=== PATIENT | female | born 1950 | race Two or more races ===

== ENCOUNTER → 2021-11-30 | Outpatient (REF) | payer MEDICARE | LOC: M SFHCDERM 17:32 | PROVIDERS: ATTEND Physician Assistant | DX: B07.9 Viral wart, unspecified (principal) ==

== ENCOUNTER 2023-01-15 13:31 | Inpatient (IN) | payer MEDICARE ==
[~2023-01-15] VITALS: Ht 154.9 cm; Wt 64.9 kg
[~2023-01-15 13:31] MED LIST: ATORVASTATIN 20 MG TAB PO SCH; LEVOTHYROXINE 75MCG TABLET (0.075MG) PO SCH; OLANZapine 5 MG TAB PO SCH; PARoxetine 20MG TABLET PO SCH
[2023-01-15] MEDS ORDERED: PROXETINE (13:51)
[2023-01-15] MEDS ORDERED: LEVO50TA5 PO (13:51)
[2023-01-15] MEDS ORDERED: OLAN15TA13 PO (13:51)
[2023-01-15] MEDS ORDERED: ATOR1TAB21 PO (13:51)
[2023-01-15] MEDS ORDERED: LISI20TA33 PO (13:51)
[2023-01-15 14:57] LABS: HEMATOCRIT 42.1 % (36.0-47.0); HEMOGLOBIN 14.4 g/dl (12.0-15.5); MEAN CORPUSCULAR HEMOGLOBIN 29.5 pg (27.0-33.0); MEAN CORPUSCULAR HGB CONC 34.2 g/dl (32.0-36.5); MEAN CORPUSCULAR VOLUME 86.3 fl (80.0-96.0); PLATELET COUNT, AUTOMATED 273 10^3/uL (150-450); RED BLOOD COUNT 4.88 10^6/uL (4.00-5.40); WHITE BLOOD COUNT 8.4 10^3/uL (4.0-10.0)
[2023-01-15 15:18] LABS: AMPHETAMINES LEVEL URINE NEGATIVE (NEGATIVE); BARBITURATES URINE NEGATIVE (NEGATIVE); BENZODIAZEPINES URINE NEGATIVE (NEGATIVE); COCAINE METABOLITE URINE NEGATIVE (NEGATIVE); METHADONE URINE NEGATIVE (NEGATIVE); OPIATES URINE NEGATIVE (NEGATIVE)
[2023-01-15 15:19] LABS: PHENCYCLIDINE URINE NEGATIVE (NEGATIVE)
[2023-01-15 15:21] LABS: CANNABINOIDS URINE POSITIVE (NEGATIVE); ETHYL ALCOHOL (ETHANOL) 0.005 % (0.000-0.010)
[2023-01-15 15:22] LABS: SALICYLATE LEVEL < 3.0 MG/DL (<30)
[2023-01-15 15:23] LABS: ALBUMIN 4.4 G/DL (3.2-5.2); ALKALINE PHOSPHATASE 117 U/L (46-116); ALT/SGPT 86 U/L (7.0-40); AST/SGOT 61 U/L (<34); BILIRUBIN,DIRECT 0.2 MG/DL (<0.4); BILIRUBIN,TOTAL 0.5 MG/DL (0.3-1.2); BLOOD UREA NITROGEN 11 MG/DL (9-23); CALCIUM LEVEL 10.7 MG/DL (8.3-10.6); CARBON DIOXIDE LEVEL 26 MMOL/L (20-31); CHLORIDE LEVEL 99 MMOL/L (98-107); CREATININE FOR GFR 0.72 MG/DL (0.55-1.30); GLOMERULAR FILTRATION RATE > 60.0 (>39); GLUCOSE, FASTING 170 MG/DL (74-106); POTASSIUM SERUM 5.2 MMOL/L (3.5-5.1); SODIUM LEVEL 135 MMOL/L (136-145); TOTAL PROTEIN 7.9 G/DL (5.7-8.2)
[2023-01-15 15:25] LABS: THYROID STIMULATING HORMONE 0.268 uIU/ML (0.55-4.78)
[2023-01-15] MEDS ORDERED: METF-838 PO (17:07)
[2023-01-15] MEDS ORDERED: LEVO75TA4 PO (17:07)
[2023-01-15] MEDS ORDERED: IBAN150T6 PO (17:07)
[2023-01-15] MEDS ORDERED: ATOR40TA75 PO (17:07)
[2023-01-15] MEDS ORDERED: PARO40TA2 PO (17:07)
[2023-01-15] MEDS ORDERED: ZYPR5TAB2 PO (17:07)
[2023-01-15] MEDS ORDERED: HOME MED LIST COMPLETE! XX SCH (17:10)
[2023-01-15] MEDS ORDERED: metFORMIN XR 500MG TAB *GLUCOPHAGE XR PO SCH (18:00)
[2023-01-15] MEDS ORDERED: MOM 30ML SUSPENSION UDC PO PRN (18:10)
[2023-01-15] MEDS ORDERED: GLUCOSE 4GM CHEW TABLET PO PRN (18:10)
[2023-01-15] MEDS ORDERED: diphenhydrAMINE 25MG CAP PO PRN (18:10)
[2023-01-15] MEDS ORDERED: ACETAMINOPHEN TAB 650MG DOSE (2X325MG) PO PRN (18:10)
[2023-01-15] MEDS ORDERED: GLUCAGON INJ 1MG VIAL SC PRN (18:10)
[2023-01-15] MEDS ORDERED: IBUPROFEN 400MG TAB PO PRN (18:10)
[2023-01-15] MEDS ORDERED: DEXTROSE 50% 50ML SYRINGE IV PRN (18:10)
[2023-01-15] MEDS ORDERED: MAALOX 30 ML SUSP *UDC PO PRN (18:10)
[2023-01-15] MEDS: metFORMIN XR 500MG TAB *GLUCOPHAGE XR PO SCH (20:51)
[2023-01-15] MEDS: ATORVASTATIN 20 MG TAB PO SCH (20:53)
[2023-01-15 22:07] VITALS: BP 107/64; TEMP 96.8; O2SAT 96
[2023-01-15] MEDS: traZODone 50 MG TAB PO PRN (22:34)
[2023-01-16 06:38] VITALS: BP 121/66; TEMP 98.6; O2SAT 99
[2023-01-16] MEDS: ATORVASTATIN 20 MG TAB PO SCH ×2 (08:41→20:21)
[2023-01-16] MEDS ORDERED: PARoxetine 20MG TABLET PO SCH ×2 (09:00→21:00)
[2023-01-16] MEDS ORDERED: OLANZapine 5 MG TAB PO SCH (09:00)
[2023-01-16] MEDS: LEVOTHYROXINE 75MCG TABLET (0.075MG) PO SCH (10:42)
[2023-01-16 16:16] VITALS: BP 132/70; TEMP 97.2; O2SAT 99
[2023-01-16] MEDS: metFORMIN XR 500MG TAB *GLUCOPHAGE XR PO SCH (20:19)
[2023-01-16] MEDS: traZODone 50 MG TAB PO PRN (20:21)
[2023-01-16] MEDS: OLANZapine 5 MG TAB PO SCH (20:21)
[2023-01-17] MEDS: LEVOTHYROXINE 75MCG TABLET (0.075MG) PO SCH (05:37)
[2023-01-17 06:16] VITALS: BP 96/56; TEMP 97.6; O2SAT 97
[2023-01-17] MEDS ORDERED: traZODone 25MG PER 1/2 TABLET PO PRN (10:50)
[2023-01-17 17:59] VITALS: BP 131/61; TEMP 98.2; O2SAT 97
[2023-01-17] MEDS ORDERED: metFORMIN XR 500MG TAB *GLUCOPHAGE XR PO SCH (18:00)
[2023-01-17 20:28] VITALS: BP 122/74
[2023-01-17] MEDS: OLANZapine 5 MG TAB PO SCH (20:28)
[2023-01-17] MEDS: ATORVASTATIN 20 MG TAB PO SCH (20:28)
[2023-01-17] MEDS ORDERED: PARoxetine 10MG TABLET PO SCH (21:00)
[2023-01-18] MEDS: LEVOTHYROXINE 75MCG TABLET (0.075MG) PO SCH (05:41)
[2023-01-18 06:15] VITALS: BP 108/67; TEMP 98.3; O2SAT 98
[2023-01-18 07:27] LABS: CHOLESTEROL RISK RATIO 3.41 (<5); HDL CHOLESTEROL 43.6 MG/DL (>40); LDL CHOLESTEROL 75.8 MG/DL (<100); NON-HDL-C 105.4 MG/DL
[2023-01-18] MEDS ORDERED: TRAZ-252 PO (11:13)
[2023-01-18] MEDS ORDERED: PARO5TAB PO (11:13)
== END 2023-01-18 14:19 | disposition home or self-care (01) | DRG 881 ==
LOC: M ED 13:31 → M ED INP 18:06 → M PSY 21:08
PROVIDERS: ADMIT Student in an Organized Health Care Education/Training Program; ATTEND Student in an Organized Health Care Education/Training Program
DX: F32.9 Major depressive disorder, single episode, unspecified (principal); R45.851 Suicidal ideations; F32.A Depression, unspecified; Z79.899 Other long term (current) drug therapy; E03.9 Hypothyroidism, unspecified; E11.9 Type 2 diabetes mellitus without complications; E78.5 Hyperlipidemia, unspecified; Z96.652 Presence of left artificial knee joint; G47.00 Insomnia, unspecified